=== PATIENT | female | born 1980 | race Caucasian/White ===

== ENCOUNTER 2022-07-02 18:43 | Emergency (ER) | payer OTHER ==
[2022-07-02 22:44] LABS: BASOPHIL 0.3 % (0-2); EOSINOPHIL 0.1 % (0-5); HCT 44.3 % (37.0-47.0); HGB 14.9 g/dl (12.5-16.0); LYMPHOCYTE 15.5 % (15-48); MCH 27.4 pg (25.0-31.0); MCHC 33.6 g/dL (32.0-36.0); MCV 81.6 fL (78.0-100.0); MONOCYTE 5.6 % (0-12); MPV 10.2 fL (6.0-9.5); NEUTROPHIL 78.1 % (41-80); NRBC 0; PLT 219 K/uL (150-400); RBC 5.43 M/uL (4.20-5.40); RDW 13.4 % (11.5-14.0); WBC 11.2 K/uL (4.0-10.5)
[2022-07-02 23:01] LABS: ALBUMIN 3.9 g/dL (3.4-5.0); BILIRUBIN - TOTAL 0.6 mg/dL (0.2-1.0); BUN/CREAT RATIO (CALC) 15.4 RATIO; CREATININE 0.65 mg/dL (0.51-0.95); GLOBULIN (CALCULATION) 2.9 g/dL; POTASSIUM 3.9 mmol/L (3.5-5.1); TOTAL PROTEIN 6.8 g/dL (6.4-8.2)
[2022-07-03] MEDS ORDERED: ONDANSETRON HCL4 MG PO (01:46)
[2022-07-03] MEDS ORDERED: PROTONIX 40MG T40 MG PO (01:46)
== END 2022-07-03 01:46 | disposition home or self-care (01) ==
LOC: FER 18:43
PROVIDERS: Emergency Medicine
DX: K29.80 Duodenitis without bleeding (principal); K29.70 Gastritis, unspecified, without bleeding; F17.210 Nicotine dependence, cigarettes, uncomplicated; Z88.8 Allergy status to other drugs, medicaments and biological substances
CPT/HCPCS: 36415; 80053; 82150; 83690; 85025; C9113; J2270; J2405; J7030; Q0162; Q0169